=== PATIENT | female | born 1930 ===

== ENCOUNTER 2017-12-04 08:21 | Day surgery (SDC) | payer OTHER, MEDICARE ==
[~2017-12-04 08:21] MED LIST: ACET500 PO; ALBU90OI INH; ALEN70 PO; AMLO5 PO; ASCO500 PO; ASPI81CH PO; BENZ100A PO; CEPH500 PO; OSEL75CA PO; ROBITUSSIN COU237 ML PO; TIMO.25OPS BOTHEYES; TIMOPTIC 0.5%1 EACH BOTHEYES; Zofran Odt4 MG SL; Zofran Odt8 MG SL
[2018-08-17] MEDS ORDERED: METR59TL TOP (16:00)
[2018-08-17] MEDS ORDERED: TRIA15CR3 TOP (16:01)
[2018-08-17] MEDS ORDERED: CIPDEXSU BOTHEARS (16:02)
[2018-08-17] MEDS ORDERED: DICLOFENAC SODIUM 1% TOP (16:04)
[2018-08-17] MEDS ORDERED: Vitamin D2000 UNIT PO (16:05)
[2018-08-17] MEDS ORDERED: Hair, Skin & N1 EACH PO (16:06)
[2018-08-17] MEDS ORDERED: PROBIOTIC1 EAC1 PO (16:06)
[2018-08-17] MEDS ORDERED: ANASTROZOLE PO (16:07)
== END 2017-12-04 22:59 | disposition home or self-care (01) ==
LOC: MOI MAM 08:21
PROC: 0HBT3ZX Excision of Right Breast, Percutaneous Approach, Diagnostic (ICD-10-PCS; principal; 2017-12-04)
DX: C50.911 Malignant neoplasm of unspecified site of right female breast (principal); Z17.0 Estrogen receptor positive status [ER+]
CPT/HCPCS: 19083; 77065; 88305; 88360; A4648; G0279